=== PATIENT | female | born 1955 ===

== ENCOUNTER 2018-04-10 16:22 | Emergency (ER) | payer SELFPAY ==
[2018-04-10 16:35] VITALS: BP 123/71; PULSE 88; RESP 20; TEMP 98.8; O2SAT 97
--- NOTE | 2018-04-10 16:54 | C.PDOC ---
History Of Present Illness 62 y/o female presents to the ER complaining of bilateral trapezius pain which has been present since yesterday. Patient states that she took Tylenol. Patient reports that she applied heating pads which made the pain worse. She notes that she had rash with NSAID's. She notes that she has history of fibromyalgia. She was recently evaluated at [facility] and she was prescribed Nuerontin. Denies having fever, chills, and headache. Time Seen by Provider: 04/10/18 16:49 Chief Complaint (Nursing): Back Pain History Per: Patient History/Exam Limitations: no limitations Onset/Duration Of Symptoms: Days Current Symptoms Are (Timing): Still Present Severity: Moderate Past Medical History Reviewed: Historical Data, Nursing Documentation, Vital Signs Vital Signs: Last Vital Signs Temp 98.8 F 04/10/18 16:29 Pulse 88 04/10/18 16:29 Resp 20 04/10/18 16:29 BP 123/71 04/10/18 16:29 Pulse Ox 97 04/10/18 16:29 - Medical History PMH: Fibromyalgia, HTN, Hyperthyroidism Other Surgeries: Hx of surgeries Family History: States: No Known Family Hx - Social History Hx Alcohol Use: No Hx Substance Use: No - Immunization History Hx Tetanus Toxoid Vaccination: No Hx Influenza Vaccination: Yes (04/02/2018) Hx Pneumococcal Vaccination: No Review Of Systems Except As Marked, All Systems Reviewed And Found Negative. Constitutional: Negative for: Fever, Chills Musculoskeletal: Positive for: Neck Pain Neurological: Negative for: Weakness, Numbness, Headache Physical Exam - Physical Exam Appears: Non-toxic, No Acute Distress Skin: Normal Color, Warm, Dry Head: Atraumatic, Normacephalic Eye(s): bilateral: Normal Inspection Nose: Normal Oral Mucosa: Moist Neck: Supple, Other (bilateral trapezius tenderness and muscle spasm) Chest: Symmetrical Cardiovascular: Rhythm Regular Respiratory: Normal Breath Sounds, No Rales, No Rhonchi, No Wheezing Neurological/Psych: Oriented x3, Normal Speech ED Course And Treatment O2 Sat by Pulse Oximetry: 97 (RA) Pulse Ox Interpretation: Normal Medical Decision Making Medical Decision Making: trapezius strain/sprain underlying fibromyalgia rash allergies to NSAIDS worse with heat therapies @ home. ICE educated. Disposition Doctor Will See Patient In The: Office Counseled Patient/Family Regarding: Studies Performed, Diagnosis - Disposition Referrals: [facility] [Outside] [facility] [Outside] [facility] [Outside] [facility] [Outside] Disposition: HOME/ ROUTINE Disposition Time: 17:04 Condition: GOOD Additional Instructions: [place] 1/2 hora por hora, nada caliente no stephanie alexandra caliente tylenol 1000 mg cada 6 horas jeffy necessario Sigue con [facility] jeffy necessario. Instructions: Muscle Strain Forms: [facility] ([place]), School Excuse Print Language: ICELANDIC - Clinical Impression Clinical Impression: Trapezius muscle strain - Scribe Statement The provider has reviewed the documentation as recorded by the Scribe Phan Alvarez Provider Attestation: All medical record entries made by the Scribe were at my direction and personally dictated by me. I have reviewed the chart and agree that the record accurately reflects my personal performance of the history, physical exam, medical decision making, and the department course for this patient. I have also personally directed, reviewed, and agree with the discharge instructions and disposition.
== END 2018-04-10 17:27 | disposition home or self-care (01) ==
LOC: C.ER 16:22
DX: S46.919A Strain of unspecified muscle, fascia and tendon at shoulder and upper arm level, unspecified arm, initial encounter (principal); X58.XXXA Exposure to other specified factors, initial encounter; I10 Essential (primary) hypertension; E05.90 Thyrotoxicosis, unspecified without thyrotoxic crisis or storm; M79.7 Fibromyalgia